=== PATIENT | female | born 1990 | race Two or more races ===

== ENCOUNTER 2024-03-02 10:28 | Inpatient (IN) | payer OTHER ==
[2024-03-02 10:52] VITALS: BMI 25.1
[2024-03-02] MEDS ORDERED: MAG HYDROX/AL HYDROX/SIMETH 30 ML UNIT-DOSE CUP PO PRN (12:00)
[2024-03-02] MEDS ORDERED: BISMUTH SUBSALICYLATE 262 MG/15 ML BTL PO PRN (12:00)
[2024-03-02] MEDS ORDERED: DICYCLOMINE HCL 10 MG CAPSULE PO PRN (12:00)
[2024-03-02] MEDS ORDERED: LOPERAMIDE HCL 2 MG CAPSULE PO PRN (12:00)
[2024-03-02] MEDS ORDERED: NALOXONE HCL 0.4 MG/ML VIAL IM PRN (12:00)
[2024-03-02] MEDS ORDERED: BENZONATATE 200 MG CAPSULE PO PRN (12:00)
[2024-03-02] MEDS ORDERED: IBUPROFEN 400 MG TABLET (FP) PO PRN (12:00)
[2024-03-02] MEDS ORDERED: MAGNESIUM HYDROX 2400MG/30ML ORAL SUSPENSION 30 ML CUP PO PRN (12:00)
[2024-03-02] MEDS ORDERED: guaiFENesin 600 MG TABLET.ER (FP) PO PRN (12:00)
[2024-03-02] MEDS ORDERED: IBUPROFEN 600 MG TABLET (FP) PO PRN (12:00)
[2024-03-02] MEDS ORDERED: ACETAMINOPHEN 325 MG TABLET (FP) PO PRN (12:00)
[2024-03-02] MEDS ORDERED: BENZOCAINE/MENTHOL (CHLORASEPTIC ) LOZENGE MM PRN (12:00)
[2024-03-02] MEDS ORDERED: POLYETHYLENE GLYCOL (HEALTHYLAX) 3350 17 GM PACKET PO PRN (12:00)
[2024-03-02] MEDS ORDERED: NALOXONE (NARCAN) HCL 4 MG/0.1 ML SPRAY NS PRN (12:00)
[2024-03-02] MEDS ORDERED: LORazepam 1 MG TABLET PO PRN (12:00)
[2024-03-02] MEDS: METHOCARBAMOL 500 MG TABLET PO PRN (12:43)
[2024-03-02] MEDS: hydrOXYzine PAMOATE 25 MG CAPSULE (FP) PO PRN (12:43)
[2024-03-02] MEDS: LORazepam 2 MG TABLET PO SCH (17:38)
[2024-03-02] MEDS: THIAMINE 100 MG TABLET PO SCH (23:08)
[2024-03-02] MEDS: MELATONIN 5 MG TABLETS PO SCH (23:08)
[2024-03-03] MEDS: PRENATAL VITAMINS W/ FOLIC ACID TABLET (FP) PO SCH (10:10)
[2024-03-03 11:50] LABS: HEMATOCRIT 43.6 % (32.4-45.2); HEMOGLOBIN 14.6 GM/dL (10.7-15.3); MCH 31.9 pg (25.7-33.7); MCHC 33.5 g/dl (32.0-36.0); MEAN CELL VOLUME 95.2 fl (80-96); MEAN PLT VOLUME 8.5 fl (7.5-11.1); PLATELET COUNT 282 10^3/uL (134-434); RBC 4.58 M/mm3 (3.60-5.2); RDW 13.5 % (11.6-15.6); WHITE BLOOD COUNT 8.5 K/mm3 (4.0-10.0)
[2024-03-03 11:53] LABS: ALBUMIN 4.5 g/dl (3.4-5.0); BLOOD UREA NITROGEN 6.4 mg/dL (7-18); CALCIUM 9.4 mg/dL (8.5-10.1)
[2024-03-03 11:57] LABS: CREATININE 0.9 mg/dL (0.55-1.3)
[2024-03-03 11:58] LABS: BILIRUBIN,TOTAL 0.9 mg/dL (0.2-1); TOT PROT 7.6 g/dl (6.4-8.2)
[2024-03-03] MEDS: ARIPiprazole 5 MG TABLET PO SCH (12:02)
[2024-03-03] MEDS: FLUoxetine HCL 20 MG CAPSULE PO SCH (12:02)
[2024-03-04] MEDS: LORazepam 1 MG TABLET PO SCH (05:58)
[2024-03-04] MEDS: ONDANSETRON *ODT* 4 MG TABLET SL PRN (06:05)
[2024-03-04 17:53] VITALS: RESP 16
[2024-03-05] MEDS ORDERED: LORazepam 0.5 MG TABLET PO PRN
[2024-03-05] MEDS: LORazepam 0.5 MG TABLET PO SCH (05:32)
[2024-03-05 06:34] VITALS: BP 121/64; PULSE 86; TEMP 97.8
[2024-03-06] MEDS ORDERED: LORazepam 0.5 MG TABLET PO ONE (05:00)
== END 2024-03-05 09:08 | disposition home or self-care (01) | DRG 775 ==
LOC: YASAS 10:28 → Y6N 12:14 → Y3N 03-05 02:10
PROVIDERS: ADMIT Allergy & Immunology; ATTEND Surgery
PROC: HZ2ZZZZ Detoxification Services for Substance Abuse Treatment (ICD-10-PCS; principal; 2024-03-02)
DX: F10.230 Alcohol dependence with withdrawal, uncomplicated (principal); F10.282 Alcohol dependence with alcohol-induced sleep disorder; F25.9 Schizoaffective disorder, unspecified; F41.9 Anxiety disorder, unspecified; Z87.891 Personal history of nicotine dependence; Z56.0 Unemployment, unspecified
CPT/HCPCS: 36415; 80053; 80305; 80307; 85027; 86780; 93005; 93010; Q0162